=== PATIENT | male | born 1955 | race Caucasian/White ===

== ENCOUNTER 2018-04-12 07:52 | Day surgery (SDC) | payer MEDICARE, OTHER, SELFPAY ==
[2018-04-12 08:26] VITALS: BP 163/100; PULSE 71; RESP 16; TEMP 35.8; O2SAT 97; BMI 30.9
[2018-04-12] MEDS: LACTATED RINGERS 1,000 ML 200 ML IV (09:04)
--- NOTE | 2018-04-12 09:17 | PM.PREOP ---
Pre-operative Note Interval Note Pre-op Check: Yes History & Physical Reviewed by Physician and Yes Exam Performed Changes: Yes
--- NOTE | 2018-04-12 09:43 | SUR.OPER ---
HEAD OF BED UP 30 DEGREES
--- NOTE | 2018-04-12 09:58 | PM.OP.ENDO ---
Operative Date/Time/Diagnoses Date of procedure: 04/12/18 Time of procedure: 09:59 Pre-op diagnosis: History of esophageal varices Post-op diagnosis: same Procedure & Clinicians Study performed: EGD Same procedure as scheduled: Yes Indications: surveillance of varices Surgeon: Sharif Miranda Procedure Notes SCOAP/Timeout: performed Procedure in detail: the patient was placed supine head up on the stretcher and underwent monitored anesthesia care due to her is serious medical issues. Topical anesthetic was applied was oropharynx. The scope was inserted and advanced through the mouth into the esophagus. Cord structures were noted to be normal. The esophagus was unremarkable touched until I reached 20 cm. There was a hollowed out area that may be the beginning of a Zenker's diverticulum. It was almost as though there was a patch of normal mucosa missing. The edges were prominent. This did not appear to be neoplastic. The scope was advanced through the rest of the esophagus. GE junction noted at 40 cm From the incisors. The stomach insufflated well. No lesions were seen in the body and antrum. The incisura was normal in appearance. The pyloric channel was patent. The duodenum was unremarkable to the Third part. The scope was brought back into the stomach and retroflexed. The proximal stomach was normal in appearance. There was no significant hiatal hernia seen. There was no evidence of gastric varices. The scope was straightened and brought back up into the GE junction area. The junction itself was fairly normal. There appeared to be 2 columns of varices both of which were fairly minor in diameter. The area was difficult to examine because the patient had a great deal of motion. There were no ulcerations and no inflammation. The scope was removed and the patient tolerated the procedure well. Scope withdrawal time: Not applicable Sedation minutes: 0 Findings: other findings ( esophageal varices) Specimen(s): none sent Complications: none Recommendations: Continue medication(s) and Other recommendation ( repeat exam in 6 months to a year.) Follow up: as needed Disposition: PACU
[2018-04-12 10:00] VITALS: BP 109/71; PULSE 69; RESP 12; TEMP 36.4; O2SAT 94
[2018-04-12 10:05] VITALS: BP 110/67; PULSE 63; RESP 12; O2SAT 95
[2018-04-12 10:10] VITALS: BP 114/70; PULSE 61; RESP 15; O2SAT 98
[2018-04-12 10:15] VITALS: BP 111/72; PULSE 61; RESP 15; O2SAT 97
[2018-04-12 10:30] VITALS: BP 134/85; PULSE 66; RESP 18; TEMP 36.4; O2SAT 96
[2018-04-12 11:41] LABS: Alanine Aminotransferase 45 IU/L (21-72)
[2018-04-12 12:18] LABS: Hepatitis B Surface Antigen NEGATIVE s/c (NEGATIVE)
[2018-04-12 12:33] LABS: Hemoglobin A1C% w Est Avg Glu 6.7 % (4.0-6.0)
[2018-04-12 12:36] LABS: HIV 1 and 2 Antibody NEGATIVE (NEGATIVE); Hep C Virus Ab w/Reflex Quant REACTIVE s/c (NEGATIVE)
--- NOTE | 2018-04-12 13:01 | SUR.PHASEII ---
1100: Lab at bedside, assisted with drawing pt labs ordered by Dr. Miranda. Labs drawn from PIV on Right Foot then PIV DC'd. Pt tolerated lab draw well.
[2018-04-13 13:56] LABS: Hepatitis B Surf Ab Qualitativ Nonreactive (Nonreactive)
== END 2018-04-12 11:20 | disposition home or self-care (01) ==
PROVIDERS: PCP Internal Medicine; Visit Provider Specialist
PROC: 0DJ08ZZ Inspection of Upper Intestinal Tract, Via Natural or Artificial Opening Endoscopic (ICD-10-PCS; CPT 43235; principal; 2018-04-12 09:30)
DX: I85.00 Esophageal varices without bleeding (principal); K74.60 Unspecified cirrhosis of liver; K21.9 Gastro-esophageal reflux disease without esophagitis; I10 Essential (primary) hypertension; E11.9 Type 2 diabetes mellitus without complications
CPT/HCPCS: 43235; 83036; 87522; J2250; J2704

== ENCOUNTER 2019-06-11 06:25 | Day surgery (SDC) | payer MEDICARE, OTHER, SELFPAY ==
--- NOTE | 2019-06-11 | PATH_ITS ---
[facility] Accession Number: [id number] . 01 Material submitted: . PART A: esophagus, E-G Junction - GE JUNCTION BIOPSY PART B: gastrointestinal site - GASTRIC ULCER BIOPSY . 01 Clinical history: . EGD . 02 Diagnosis: A. Gastroesophageal Junction, Biopsy: Squamocolumnar junctional mucosa with no diagnostic abnormality. Negative for intestinal metaplasia. Negative for dysplasia and malignancy. . B. Stomach, Ulcer, Biopsy: Antral mucosa with mild chronic gastritis. Negative for Helicobacter by immunohistochemistry. Negative for intestinal metaplasia. Negative for dysplasia and malignancy. MRV 06/13/2019 1225 Local . 02 Electronically signed: . Marisa Serrano MD, Pathologist NPI- [id number] . 01 Gross description: . Part A: GE JUNCTION BIOPSY: Received in formalin are 2 fragment(s) of diaz, soft tissue measuring 0.2 x 0.2 x 0.2 cm to 0.4 x 0.2 x 0.2 cm submitted entirely in 1 cassette(s) Part B: GASTRIC ULCER BIOPSY: Received in formalin are 2 fragment(s) of diaz, soft tissue measuring 0.1 x 0.1 x 0.1 cm to 0.2 x 0.1 x 0.1 cm submitted entirely in 1 cassette(s) /[facility] [place] 06/11/2019 1946 Local . 02 Microscopic: . B. An immunohistochemical stain was performed to evaluate for Helicobacter organisms and is negative. The control stain showed appropriate reactivity. . * This test was developed and its performance characteristics determined by [employer]. It has not been cleared or approved by the U.S. Food and Drug Administration. The FDA has determined that such clearance or approval is not necessary. This test is used for clinical purposes. It should not be regarded as investigational or for research. . 02 Pathologist provided ICD-10: I85.00 . 02 CPT . 599149, 980832, S53944 Performed at: 01 [facility] [address] [id number] MD Tae Harrison MD Phone: [phone] Performed at: [id number] [place], [place] [id number] MD Marisa Serrano MD Phone: [phone]
[2019-06-11 07:22] VITALS: BP 173/96; PULSE 70; RESP 16; TEMP 36.6; O2SAT 97; BMI 33.2
[2019-06-11] MEDS: SODIUM CHLORIDE 0.9% 1,000 ML 200 ML IV (07:35)
--- NOTE | 2019-06-11 08:07 | PM.HP.1 ---
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 He is here for surveillance of his varices Patient History Medical History Abdominal pain (Chronic) Aortic stenosis (Inactive) Cirrhosis (Chronic) Diabetes (Chronic) Esophageal varices (Chronic) GERD (gastroesophageal reflux disease) (Chronic) HTN (hypertension) (Chronic) Neuropathy (Chronic) Retinopathy (Chronic) Surgical History H/O arthroscopy of right knee (Inactive) History of appendectomy (Resolved) History of right inguinal hernia repair (Resolved) History of tympanoplasty (Resolved) S/P FESS (functional endoscopic sinus surgery) (Resolved) S/P TAVR (transcatheter aortic valve replacement) (Inactive) Family & Social History Family History Mother Hypertension Heart disease Sister Hypertension Social History: household members spouse Meds Home Medications and Allergies Home Medications Medication Instructions Recorded Confirmed Type [INSULIN PUMP] #0 06/09/16 History Lantus Solostar U-100 Insulin 40 unit SUBCUT DAILY PRN #0 08/24/17 06/11/19 History magnesium oxide 420 mg PO DAILY #0 08/24/17 06/11/19 History propranolol 60 mg PO BID #0 08/24/17 06/11/19 History amlodipine 10 mg tablet 10 mg PO DAILY 04/04/18 06/11/19 History aspirin 81 mg tablet,delayed 81 mg PO DAILY 04/04/18 06/11/19 History release losartan 50 mg tablet 50 mg PO DAILY 04/04/18 06/11/19 History ranitidine HCl 150 mg tablet 150 mg PO BID 04/04/18 06/11/19 History Allergies Allergy/AdvReac Type Severity Reaction Status Date / Time PPD Allergy Intermediate erythema Uncoded 04/12/18 08:23 tape AdvReac Intermediate Blisters Uncoded 06/11/19 07:11 Review of Systems Review of Systems Narrative: No chest pain or heart problems. He is diabetic sugar this morning is normal. He is on insulin pump. Takes medication to regulate his intestines. Exam Vital Signs (past 8 hours): - 06/11/19 07:22 Temperature 97.8 F Pulse Rate 70 Respiratory Rate 16 Blood Pressure 173/96 H Pulse Oximetry 97 Oxygen Delivery Method Room Air Narrative Exam Narrative: Pleasant cooperative patient no apparent distress. Lungs are clear to auscultation. No rales or rhonchi. Heart regular rate and rhythm no murmur gallop. Abdomen is soft nontender without mass. No obvious hernias. Patient is alert and oriented x3. Assessment & Plan Assessment & Plan narrative: For an EGD. He is quite familiar with the procedure having undergone it multiple times. I discussed that with him and will proceed.
--- NOTE | 2019-06-11 08:14 | PM.PREOP ---
Pre-operative Note Interval Note History & Physical reviewed/Exam performed by Physician: Yes Changes to H&P: No ASA Class (for procedural sedation): III
[2019-06-11] MEDS: fentaNYL 250 MCG/5 ML INJ IV (08:30)
[2019-06-11] MEDS: MIDAZOLAM 5 MG/5 ML VIAL IV (08:31)
[2019-06-11] MEDS: LIDOCAINE 4% SOLN 50 ML 20 ML TOP (08:31)
--- NOTE | 2019-06-11 08:39 | PM.OP.ENDO ---
Operative Date/Time/Diagnoses Date of procedure: 06/11/19 Time of procedure: 08:39 Pre-op diagnosis: History of liver cirrhosis and esophageal varices Post-op diagnosis: same (Gastric ulcers superficial. Hiatal hernia.) Procedure & Clinicians Study performed: EGD with cold biopsy Same procedure as scheduled: Yes Indications: Surveillance of varices Surgeon: Sharif Miranda Procedure Notes SCOAP/Timeout: Performed Procedure in detail: The patient had topical anesthetic applied to oropharynx. She was placed in left lateral decubitus position and underwent IV sedation directed by the surgeon consisting of fentanyl and Versed. A bite block was inserted and the scope was advanced through it into the esophagus. The esophagus was notable for proximal small varices mainly in the proximal 3rd of the esophagus. The middle and distal 3rd appeared to be spared significant variceal disease. There was inflammation at the GE junction. There was a sharp demarcation between esophageal and gastric mucosa.. The stomach insufflated well. There were no lesions seen in the body, or at the incisura. In the antrum there was 1 superficial small ulceration. The pyloric channel was narrowed but patent. The duodenum was unremarkable to the 3rd part. The scope was brought back into the stomach and retroflexed. The proximal stomach was remarkable for a hiatal hernia. The scope was straightened and biopsies taken of the ulcers seen. The scope was then Brought out through the esophagus again. I did some superficial biopsies at the GE junction. The scope was removed and the patient tolerated the procedure well. Scope withdrawal time: Not applicable Sedation minutes: 18 Findings: gastric ulcer, hiatal hernia and other findings (Esophageal varices small) Specimen(s): other (Biopsies of the ulcer and the GE junction) Complications: none Post-procedure Recommendations: Start medication(s) (Consider proton pump inhibitor) and Other recommendation (EGD 18 months) Disposition: PACU
[2019-06-11 08:40] VITALS: BP 155/106; PULSE 70; RESP 16; TEMP 36.6; O2SAT 94
[2019-06-11 08:45] VITALS: BP 163/98; PULSE 74; RESP 16; O2SAT 94
[2019-06-11 08:49] VITALS: BP 164/104; PULSE 69; RESP 12; TEMP 36.2; O2SAT 95
[2019-06-11 08:53] VITALS: BP 161/99; PULSE 67; RESP 12; O2SAT 95
--- NOTE | 2019-06-11 09:25 | SUR.PHASEII ---
pt discharged home. Denies any complaints. pt steady on his feet with pt.
== END 2019-06-11 09:15 | disposition home or self-care (01) ==
PROVIDERS: PCP Internal Medicine; Visit Provider Specialist
PROC: 0DJ08ZZ Inspection of Upper Intestinal Tract, Via Natural or Artificial Opening Endoscopic (ICD-10-PCS; CPT 43235; principal; 2019-06-11 07:45)
DX: I85.00 Esophageal varices without bleeding (principal); K25.9 Gastric ulcer, unspecified as acute or chronic, without hemorrhage or perforation; K44.9 Diaphragmatic hernia without obstruction or gangrene; K74.60 Unspecified cirrhosis of liver; E11.9 Type 2 diabetes mellitus without complications; I10 Essential (primary) hypertension; Z79.4 Long term (current) use of insulin
CPT/HCPCS: 43239; 99152; J2250; J3010

== ENCOUNTER 2019-09-12 06:42 | Day surgery (SDC) | payer MEDICARE, OTHER, SELFPAY ==
[2019-09-12] VITALS (7 sets, daily range): BP systolic 134–183; BP diastolic 82–105; PULSE 69–80; RESP 8–19; TEMP 36.4–36.7; O2SAT 90–97; BMI 33.1
[2019-09-12] MEDS: SODIUM CHLORIDE 0.9% 1,000 ML 84 ML IV (07:45)
[2019-09-12] MEDS: MIDAZOLAM 5 MG/5 ML VIAL IV (08:00)
--- NOTE | 2019-09-12 08:09 | PM.HP.1 ---
History of Present Illness History of Present Illness Date Patient Seen: 09/12/19 Time Patient Seen: 08:00 Chief complaint: [id number] EGD Narrative: The patient is a gentleman who had superficial gastric ulcers on his last EGD. He is brought to make sure they have healed. He has been treated with though it does proton pump inhibitors. He has a history of cirrhosis and varices Patient History Medical History Abdominal pain (Chronic) Aortic stenosis (Inactive) Cirrhosis (Chronic) Diabetes (Chronic) Esophageal varices (Chronic) GERD (gastroesophageal reflux disease) (Chronic) HTN (hypertension) (Chronic) Neuropathy (Chronic) Retinopathy (Chronic) Surgical History H/O arthroscopy of right knee (Inactive) History of appendectomy (Resolved) History of right inguinal hernia repair (Resolved) History of tympanoplasty (Resolved) S/P FESS (functional endoscopic sinus surgery) (Resolved) S/P TAVR (transcatheter aortic valve replacement) (Inactive) Family & Social History Family History Mother Hypertension Heart disease Sister Hypertension Social History: household members spouse Tobacco & Substance use: Tobacco type cigarettes Smoking Status Former smoker alcohol intake former Meds Home Medications and Allergies Home Medications Medication Instructions Recorded Confirmed Type [INSULIN PUMP] 75 units SUBCUT (VIA WEARABLE 06/09/16 09/12/19 History INJECTR) DAILY #0 Lantus Solostar U-100 Insulin 40 unit SUBCUT DAILY PRN #0 08/24/17 09/12/19 History magnesium oxide 420 mg PO DAILY #0 08/24/17 09/12/19 History propranolol 60 mg PO BID #0 08/24/17 09/12/19 History amlodipine 10 mg tablet 10 mg PO DAILY 04/04/18 09/12/19 History aspirin 81 mg tablet,delayed 81 mg PO DAILY 04/04/18 09/12/19 History release losartan 50 mg tablet 50 mg PO DAILY 04/04/18 09/12/19 History omeprazole 20 mg PO BID #60 cap 06/11/19 09/12/19 Rx wctmkrkchnas-njqh-uurst acid 1 tab PO DAILY 09/12/19 09/12/19 History [Multi-Day with Iron] rifaximin 550 mg PO BID 09/12/19 09/12/19 History Allergies Allergy/AdvReac Type Severity Reaction Status Date / Time PPD Allergy Intermediate erythema Uncoded 09/12/19 07:13 tape AdvReac Intermediate Blisters Uncoded 09/12/19 07:13 Review of Systems Review of Systems Narrative: No cough cold heart problems chest pain black or bloody bowel movement seizures Exam Vital Signs (past 8 hours): - 09/12/19 07:21 Temperature 97.8 F Pulse Rate 79 Respiratory Rate 15 Blood Pressure 183/105 H Pulse Oximetry 97 Oxygen Delivery Method Room Air Narrative Exam Narrative: Operative no apparent distress lungs are clear no rales or rhonchi heart regular rate and rhythm no murmur gallop abdomen is soft nontender Assessment & Plan Assessment & Plan narrative: Will proceed to EGD. I discussed it with him including risks of bleeding perforation he wishes to proceed
--- NOTE | 2019-09-12 08:11 | PM.PREOP ---
Pre-operative Note Interval Note History & Physical reviewed/Exam performed by Physician: Yes Changes to H&P: No ASA Class (for procedural sedation): III
[2019-09-12] MEDS: LIDOCAINE 4% SOLN 50 ML 20 ML TOP (08:30)
--- NOTE | 2019-09-12 08:30 | PM.OP.ENDO ---
Operative Date/Time/Diagnoses Date of procedure: 09/12/19 Time of procedure: 08:30 Pre-op diagnosis: History of gastric ulcers. History of esophageal varices Post-op diagnosis: same Procedure & Clinicians Study performed: EGD Same procedure as scheduled: Yes Indications: Determine if ulcers have healed Surgeon: Sharif Miranda Procedure Notes SCOAP/Timeout: Perform Procedure in detail: The patient had topical anesthetic applied to oropharynx. She was placed in left lateral decubitus position and underwent IV sedation directed by the surgeon consisting of fentanyl and Versed. A bite block was inserted and the scope was advanced through it into the esophagus. The esophagus was unremarkable except for some very small scattered varices. GE junction was noted at 36 cm from the incisors. The stomach insufflated well. There were no lesions seen in the body, antrum or at the incisura. The pyloric channel was patent. The duodenum was unremarkable to the 3rd part. The scope was brought back into the stomach and retroflexed. The proximal stomach was normal in appearance except for small hiatal hernia. The scope was straightened and brought out through the esophagus again. No other lesions were seen. The scope was removed and the patient tolerated the procedure well. Scope withdrawal time: Not applicable Sedation minutes: 13 Findings: hiatal hernia and other findings (Small esophageal varices) Specimen(s): none sent Complications: none Post-procedure Plan for aftercare: Surveillance EGD for varices Follow up: as needed Disposition: PACU
[2019-09-12] MEDS: fentaNYL 250 MCG/5 ML INJ IV (08:31)
== END 2019-09-12 09:35 | disposition home or self-care (01) ==
PROVIDERS: PCP Internal Medicine; Visit Provider Specialist
PROC: 0DJ08ZZ Inspection of Upper Intestinal Tract, Via Natural or Artificial Opening Endoscopic (ICD-10-PCS; CPT 43235; principal; 2019-09-12 07:45)
DX: Z87.11 Personal history of peptic ulcer disease (principal); E11.9 Type 2 diabetes mellitus without complications; I10 Essential (primary) hypertension; I85.00 Esophageal varices without bleeding; K44.9 Diaphragmatic hernia without obstruction or gangrene
CPT/HCPCS: 43235; 99152; J2250; J3010

== ENCOUNTER → 2020-01-09 14:46 | Outpatient (CLI) | payer MEDICARE, OTHER, SELFPAY ==
[2020-01-10 12:08] LABS: SARS CoV19 IgG Negative (Negative)
== END ==
PROVIDERS: PCP Internal Medicine; Referring Provider Internal Medicine; Visit Provider Internal Medicine
DX: Z03.818 Encounter for observation for suspected exposure to other biological agents ruled out (principal)
CPT/HCPCS: 36415; 86769

== ENCOUNTER → 2020-05-23 10:04 | Outpatient (CLI) | payer MEDICARE, OTHER, SELFPAY ==
--- NOTE | 2020-05-23 | DI.MRI.S_ITS ---
PROCEDURE: MR KNEE LT WO CON INDICATIONS: Other tear of medial meniscus, current injury, left knee, in TECHNIQUE: Noncontrast sagittal PD fast spin echo and T2 fast spin echo with fat saturation, sagittal 3-D FLASH with fat saturation; coronal T1 spin echo and PD fast spin echo with fat saturation, and axial PD fast spin echo with fat saturation through the knee. COMPARISON: [facility], CR, XR KNEE ARTHRITIC SERIES LT, 05/14/2020, 10:48. FINDINGS: Image quality: Excellent. Menisci: Ill-defined medial meniscal tear with abnormal signal extending to the undersurface and free margin. There is slight partial extrusion and possible displaced meniscal fragment within the medial gutter image 23/10. Tiny parameniscal cyst adjacent to the posterior horn measuring 1-2 mm, image 7/7. Lateral meniscus intact. Cruciate ligaments: Anterior cruciate ligament appears intact. Posterior cruciate ligament appears intact. Medial structures: There is medial bowing of the medial collateral ligament, with mild internal signal changes and no complete rupture. There is adjacent soft tissue edema. The appearance could reflect reactive changes to medial compartment pathology, versus low-grade sprain of the MCL. Pes anserinus tendons appear grossly unremarkable. Semimembranosus tendon appears intact. Lateral structures: The lateral collateral ligament demonstrates thickening and intrasubstance signal change in keeping with low grade sprain, statistically chronic, although technically age indeterminate. Biceps femoris tendon appears intact. Popliteus tendon grossly unremarkable. Iliotibial band appears intact. Anterior structures: Quadriceps tendon intact. Medial and lateral patellofemoral ligaments intact. Patellar tendon appears thickened in keeping with chronic tendinopathy. Adjacent fluid and edema.. Hoffa's fat pad unremarkable. Bones and cartilage: No focal marrow contusion or discrete low signal fracture line. Within the medial compartment, mild diffuse surface fraying of the femoral tibial cartilage. Within the lateral compartment, minimal surface fraying and partial thickness femoral articular cartilage loss. Within the patellofemoral compartment, diffuse partial-thickness loss and full-thickness fissuring of the patellar and femoral trochlear cartilage Joint space: Small joint effusion. No Pimentel's cyst. No specific evidence of intra-articular loose body. IMPRESSION: Ill-defined medial meniscal tear involving the body and posterior horn. Small displaced meniscal fragment appears to be located within the medial gutter although recommend correlation with arthroscopic findings as necessary. Small parameniscal cyst adjacent the posterior horn as above Chronic patellar tendinopathy and thickening. Adjacent fluid/edema. Tricompartmental joint degeneration although most pronounced in the patellofemoral compartment. Small joint effusion Dictated by: Lawson Concepcion M.D. on 05/25/2020 at 9:17 Approved by: Lawson Concepcion M.D. on 05/25/2020 at 9:32
== END ==
PROVIDERS: PCP Internal Medicine; Referring Provider Orthopaedic Surgery; Visit Provider Orthopaedic Surgery
DX: S83.242A Other tear of medial meniscus, current injury, left knee, initial encounter (principal); M17.12 Unilateral primary osteoarthritis, left knee
CPT/HCPCS: 73721

== ENCOUNTER → 2020-06-29 13:58 | Outpatient (CLI) | payer MEDICARE, OTHER, SELFPAY ==
[2020-06-29 16:07] LABS: COVID19 -Nasal RAPID Negative (Negative)
== END ==
PROVIDERS: PCP Internal Medicine; Visit Provider Physician Assistant
DX: Z11.59 Encounter for screening for other viral diseases (principal)
CPT/HCPCS: 87635

== ENCOUNTER 2020-07-01 10:10 | Day surgery (SDC) | payer MEDICARE, OTHER, SELFPAY ==
[2020-06-26 14:00] VITALS: BMI 32.3
[2020-07-01] VITALS (7 sets, daily range): BP systolic 119–158; BP diastolic 72–87; PULSE 70–77; RESP 12–17; TEMP 36.1–36.9; O2SAT 91–97; BMI 31.9
[2020-07-01] MEDS: LACTATED RINGERS 1,000 ML 42 ML IV (10:39)
--- NOTE | 2020-07-01 10:40 | PM.PREOP ---
Pre-operative Note COVID-19 COVID-19 status: Negative Result date/Date tested (Pos, Neg/Pending): 06/29/20 Interval Note History & Physical reviewed/Exam performed by Physician: Yes Changes to H&P: No
[2020-07-01] MEDS: CEFAZOLIN 2 GM/100 ML FROZ.PIGGY IV (11:29)
--- NOTE | 2020-07-01 11:44 | SUR.OPER ---
Supine on padded OR bed. Pillow under head, arms secured on padded armboards <90 degree abduction. Safety belt across torso. Non-operative leg secured with tape over blanket over lower leg. Operative leg prepped into field. Foam padded brace at thigh of operative leg.
[2020-07-01] MEDS: BUPIVACAINE 0.5% W/ EPI (PF) 30 ML VIAL INJ (11:50)
--- NOTE | 2020-07-01 12:27 | P.OP_ITS ---
Operative Date/Time/Diagnoses Date of procedure: 07/01/20 Time of procedure: 12:27 Pre-op diagnosis: Left knee medial meniscus tear Post-op diagnosis: same Procedure & Clinicians Procedure: Left knee arthroscopy with partial medial meniscectomy (CPT code 2981) Same procedure as scheduled: Yes Indications: 64-year-old male with persistent left medial knee pain and catching. Attempted conservative treatment but due to persistence of symptoms we have discussed the options and elected proceed with arthroscopic evaluation and treatment. Surgeon: Heriberto Castro Click Yes if Unassisted: Yes Anesthesia Type: General Operative Notes Findings: Mild synovial hypertrophy. Grade 2 chondromalacia in the patellofemoral joint primarily on the patellar surface minor changes on the trochlear surface. ACL and PCL are intact. Lateral compartment demonstrates minimal softening and fibrillation of the femoral and tibial articular surface with an intact lateral meniscus to visualization and probing. Medial compartment demonstrates mild diffuse grade 2 chondromalacia of the femoral tibial surfaces. There was a complex tear of the posterior horn of the medial meniscus. The midbody and anterior horn were intact. Closure Type: primary Specimen(s): none sent Estimated Blood Loss (mL): 0 Procedure in detail: Patient brought to the operating room and placed in supine position where general anesthetic was induced. After IV antibiotics and left lower extremities prepped and draped in usual sterile fashion. Medial and lateral parapatellar portals created after infiltrating with Marcaine with epinephrine. Arthroscope introduced through the lateral parapatellar portal arthroscopic examination performed with above-noted findings. Partial medial meniscectomy performed using combination of basket forceps and shaver back to smooth and stable rim. Minor anterior synovectomy was then performed a shaver. The knee was copiously irrigated and drained and wounds closed with Steri- Strips. Knee was then reinforced tray with Marcaine sterile dressings applied, the anesthetic terminated, the patient taken to postanesthesia recovery in satisfactory condition. Complications: none Post-operative Condition: stable Disposition: PACU Plan for aftercare: Discharge home when stable, ambulation weight-bearing as tolerated. Recommend ice and anti-inflammatories as needed and follow-up in 2 weeks
[2020-07-01] MEDS: OXYCODONE IR 5 MG TABLET PO (12:31)
== END 2020-07-01 12:48 | disposition home or self-care (01) ==
PROVIDERS: PCP Internal Medicine; Referring Provider Orthopaedic Surgery; Visit Provider Orthopaedic Surgery
PROC: (CPT 29870; principal; 2020-07-01 12:45)
DX: S83.242A Other tear of medial meniscus, current injury, left knee, initial encounter (principal); M94.262 Chondromalacia, left knee; I10 Essential (primary) hypertension; G47.33 Obstructive sleep apnea (adult) (pediatric); E11.40 Type 2 diabetes mellitus with diabetic neuropathy, unspecified; Z79.4 Long term (current) use of insulin; Z86.19 Personal history of other infectious and parasitic diseases
CPT/HCPCS: 29881; J0690; J2250; J2405; J2704; J3010

== ENCOUNTER → 2020-09-22 19:28 | Outpatient (ROUT) | payer MEDICARE, OTHER, SELFPAY ==
[2020-09-22 20:07] LABS: Add Manual Diff / Slide Review NO; Basophils Absolute Auto 100 /uL (0-100); Basophils Percent Auto 0.4 % (0-2); Eosinophils Absolute Auto 200 /uL (0-450); Eosinophils Percent Auto 1.9 % (2-4); Hematocrit 44.5 % (41-53); Hemoglobin 14.6 g/dL (13.5-17.5); Lymphocytes Absolute Auto 2600 /uL (1100-4500); Lymphocytes Percent Auto 21.2 % (25-40); Mean Corpuscular HGB Conc 32.9 % (30-36); Mean Corpuscular Hemoglobin 29.2 PG (26-34); Mean Corpuscular Volume 88.8 fL (80-100); Monocytes Absolute Auto 800 /uL (0-900); Monocytes Percent Auto 6.8 % (3-14); Neutrophils Absolute Auto 8400 /uL (1500-7000); Neutrophils Percent Auto 69.7 % (50-75); Platelet Count 149 X10^3/uL (150-400); Red Blood Cell Count 5.01 X10^6/uL (4.5-5.9); Red Cell Distribution Width 13.2 % (11.6-14.8); White Blood Cell Count 12.1 X10^3/uL (4.5-11.0)
[2020-09-22 20:13] LABS: Blood Urea Nitrogen 20 mg/dL (9-20); Calcium 9.8 mg/dL (8.4-10.2); Carbon Dioxide 27 mmol/L (22-32); Chloride 102 mmol/L (98-107); Estimated Glomerular Filt Rate > 60.0 mL/min (>60); Glucose 104 mg/dL (80-110); HEMOLYSIS 21 (0-50); Potassium 4.4 mmol/L (3.4-5.1); Sodium 139 mmol/L (137-145)
[2020-09-22 20:44] LABS: Prostate Specific Antigen 1.02 ng/mL (0.10-4.00)
== END ==
PROVIDERS: PCP Internal Medicine; Visit Provider Internal Medicine
DX: N41.0 Acute prostatitis (principal)
CPT/HCPCS: 80048; 84153; 85025; 87077; 87086; 87186

== ENCOUNTER → 2020-11-05 09:29 | Outpatient (CLI) | payer MEDICARE, OTHER, SELFPAY ==
[2020-11-05 10:20] LABS: COVID19 -Nasal RAPID Negative (Negative)
== END ==
PROVIDERS: PCP Internal Medicine; Visit Provider Specialist
DX: Z20.822 Contact with and (suspected) exposure to COVID-19 (principal)
CPT/HCPCS: 87635; C9803

== ENCOUNTER 2020-11-06 06:39 | Day surgery (SDC) | payer MEDICARE, OTHER, SELFPAY ==
--- NOTE | 2020-11-06 | PATH_ITS ---
[facility] Accession Number: [id number] . 01 Material submitted: . esophagus, E-G Junction - GE JUNCTION BIOPSY . 02 Diagnosis: Gastroesophageal Junction, Biopsy: Squamocolumnar junctional mucosa with no diagnostic abnormality. Negative for intestinal metaplasia. Negative for dysplasia and malignancy. . MRV 11/11/2020 1127 Local . 02 Electronically signed: . Marisa Serrano MD, Pathologist NPI- [id number] . 01 Gross description: . GE JUNCTION BIOPSY: Received in formalin are 2 fragment(s) of diaz, soft tissue measuring 0.1 x 0.1 x 0.1 cm to 0.3 x 0.2 x 0.2 cm submitted entirely in 1 cassette(s) /[facility] 11/10/2020 0126 Local . 02 Pathologist provided ICD-10: Z87.19 . 02 CPT . 157125 Performed at: 01 [facility] [address] [facility], [place], [place] [id number] MD Tae Harrison MD Phone: [phone] Performed at: 02 [facility] [address] [place], [place] [id number] MD Marisa Serrano MD Phone: [phone]
--- NOTE | 2020-11-06 07:16 | PM.HP.1 ---
History of Present Illness History of Present Illness Date Patient Seen: 11/06/20 Time Patient Seen: 07:17 Chief complaint: EGD Narrative: The patient is a gentleman with known cirrhosis here for monitoring varices. Patient History Medical History Abdominal pain Aortic stenosis Chronic cough Cirrhosis Diabetes Diabetic retinopathy Esophageal varices Factor XI deficiency GERD (gastroesophageal reflux disease) Hepatic encephalopathy (~2012) Hepatitis C HLD (hyperlipidemia) HTN (hypertension) Hx of corrected cleft lip and palate Lung nodule Neuropathy VICKIE on CPAP (~2018) Retinopathy Thrombocytopenia Surgical History H/O arthroscopy of right knee History of appendectomy History of right inguinal hernia repair History of tympanoplasty History of vasectomy Hx of arthroscopic knee surgery Hx of rhinoplasty S/P FESS (functional endoscopic sinus surgery) S/P TAVR (transcatheter aortic valve replacement) (07/20/15) Family & Social History Family History Mother Hypertension Heart disease Sister Hypertension Social History: household members spouse Tobacco & Substance use: Tobacco type cigarettes Smoking Status Former smoker alcohol intake former Substance Use Type does not use Meds Home Medications and Allergies Home Medications Medication Instructions Recorded Confirmed Type [INSULIN PUMP] 80 units SUBCUT (VIA WEARABLE 06/09/16 07/01/20 History INJECTR) DAILY #0 Lantus Solostar U-100 Insulin 40 unit SUBCUT DAILY PRN #0 08/24/17 06/29/20 History magnesium oxide 420 mg PO DAILY #0 08/24/17 06/29/20 History propranolol 60 mg PO BID #0 08/24/17 07/01/20 History amlodipine 10 mg tablet 10 mg PO DAILY 04/04/18 07/01/20 History aspirin 81 mg tablet,delayed 81 mg PO DAILY 04/04/18 06/29/20 History release losartan 50 mg tablet 50 mg PO DAILY 04/04/18 06/29/20 History Multi-Day with Iron 1 tab PO DAILY 09/12/19 06/29/20 History rifaximin 550 mg PO BID 09/12/19 06/29/20 History cetirizine 10 mg PO DAILY PRN 06/29/20 06/29/20 History pregabalin [Lyrica] 150 mg PO TID 06/29/20 06/29/20 History venlafaxine 150 mg PO DAILY 06/29/20 06/29/20 History atorvastatin 10 mg PO DAILY 07/01/20 07/01/20 History famotidine 20 mg PO BID 07/01/20 07/01/20 History Allergies Allergy/AdvReac Type Severity Reaction Status Date / Time PPD Allergy Intermediate erythema Uncoded 11/06/20 07:06 tape AdvReac Intermediate Blisters Uncoded 11/06/20 07:06 Review of Systems Review of Systems Narrative: No cough or cold. No GI bleeding. No change in his liver status. No chest pain. Has additional gallstones on ultrasound. Exam Narrative Exam Narrative: Pleasant cooperative patient no apparent distress. Lungs are clear to auscultation. No rales or rhonchi. Heart regular rate and rhythm no murmur gallop. Abdomen is soft nontender without mass. No obvious hernias. Patient is alert and oriented x3. Assessment & Plan Assessment & Plan narrative: Patient for monitoring his varices with an EGD. He is well acquainted with the procedure and we will proceed. Consent signed
[2020-11-06 07:18] VITALS: BP 159/94; PULSE 69; RESP 16; TEMP 36.2; O2SAT 97; BMI 32.5
--- NOTE | 2020-11-06 07:20 | PM.PREOP ---
Pre-operative Note COVID-19 COVID-19 status: Negative Result date/Date tested (Pos, Neg/Pending): 11/05/20 Interval Note History & Physical reviewed/Exam performed by Physician: Yes Changes to H&P: No ASA Class (for procedural sedation): III
[2020-11-06] MEDS: LACTATED RINGERS 1,000 ML 200 ML IV (07:34)
[2020-11-06] MEDS: LIDOCAINE 4% SOLN 50 ML 20 ML TOP (07:45)
[2020-11-06] MEDS: fentaNYL 250 MCG/5 ML INJ IV (07:54)
[2020-11-06] MEDS: MIDAZOLAM 5 MG/5 ML VIAL IV (07:55)
--- NOTE | 2020-11-06 08:05 | P.OP.ENDO_ITS ---
Operative Date/Time/Diagnoses Date of procedure: 11/06/20 Time of procedure: 08:05 Pre-op diagnosis: History of cirrhosis. Surveillance of varices. Post-op diagnosis: same (Mild inflammation of the GE junction. Small varices which are unchanged from prior exam.) Procedure & Clinicians Study performed: EGD with cold biopsy Same procedure as scheduled: Yes Indications: Surveillance of varices. Surgeon: Sharif Miranda Procedure Notes SCOAP/Timeout: Performed Procedure in detail: The patient had topical anesthetic applied to oropharynx. She was placed in left lateral decubitus position and underwent IV sedation dire cted by the surgeon consisting of fentanyl and Versed. A bite block was inserted and the scope was advanced through it into the esophagus. The esophagus was unremarkable. GE junction was noted to have some mild inflammation. There were for some very small varices noted in the region. There is very small hiatal hernia.. The stomach insufflated well. There were no lesions seen in the body, antrum or at the incisura. The pyloric channel was mildly narrowed but patent. The duodenum was unremarkable to the 4th part. The scope was brought back into the stomach and retroflexed. The proximal stomach normal except for the small hiatal hernia. No gastric varices were seen.. The scope was straightened and brought out through the esophagus again. Two biopsies were taken at the GE junction. No other lesions were seen. The scope was removed and the patient tolerated the procedure well. Scope withdrawal time: Not applicable Sedation minutes: 16 Findings: hiatal hernia (Small) and other findings (Mild esophagitis at the GE junction) Specimen(s): other (GE junction biopsies) Complications: none Impression: Exam of this year is almost identical to the 1 seen last year based on the report and pictures taken at that time Post-procedure Recommendations: EGD in 1 year Follow up: as needed Disposition: PACU
[2020-11-06 08:08] VITALS: BP 142/71; PULSE 63; RESP 10; TEMP 36.9; O2SAT 95
[2020-11-06 08:13] VITALS: BP 134/88; PULSE 67; RESP 14; O2SAT 93
[2020-11-06 08:18] VITALS: BP 117/60; PULSE 64; RESP 14; O2SAT 93
[2020-11-06 08:24] VITALS: BP 108/61; PULSE 68; RESP 11; O2SAT 94
[2020-11-06 08:26] VITALS: BP 136/82; PULSE 65; RESP 10; TEMP 36.1; O2SAT 95
== END 2020-11-06 08:36 | disposition home or self-care (01) ==
PROVIDERS: PCP Internal Medicine; Referring Provider Specialist; Visit Provider Specialist
PROC: 0DJ08ZZ Inspection of Upper Intestinal Tract, Via Natural or Artificial Opening Endoscopic (ICD-10-PCS; CPT 43235; principal; 2020-11-06 07:45)
DX: Z87.19 Personal history of other diseases of the digestive system (principal); K74.60 Unspecified cirrhosis of liver; G47.33 Obstructive sleep apnea (adult) (pediatric); D68.1 Hereditary factor XI deficiency; I10 Essential (primary) hypertension; E78.5 Hyperlipidemia, unspecified; E11.40 Type 2 diabetes mellitus with diabetic neuropathy, unspecified; Z79.4 Long term (current) use of insulin; K20.90 Esophagitis, unspecified without bleeding; K44.9 Diaphragmatic hernia without obstruction or gangrene
CPT/HCPCS: 43239; 99152; J2250; J3010

== ENCOUNTER → 2021-02-24 09:47 | Outpatient (CLI) | payer MEDICARE, OTHER, SELFPAY ==
[2021-02-24 10:40] LABS: COVID19 -Nasal RAPID Negative (Negative)
== END ==
PROVIDERS: PCP Internal Medicine; Referring Provider Internal Medicine; Visit Provider Internal Medicine
DX: R06.02 Shortness of breath (principal)
CPT/HCPCS: 87635

== ENCOUNTER → 2021-02-24 09:49 | Outpatient (CLI) | payer MEDICARE, OTHER, SELFPAY ==
--- NOTE | 2021-02-26 08:07 | P.PFT.S_ITS ---
Pulmonary Function Test Referral & Results Date Patient Seen: 02/24/21 Requesting provider: Kayode Lawrence Results: The spirometry demonstrates an FVC of 4.19 L which is 75% of predicted. The FEV1 was measured at 3.35 L which is 80% of predicted. The FEV1/FVC ratio was 80 which is 106% of predicted. Following the administration of bronchodilator there was no change. Lung volumes show an SVC of 4.37 L which is 80% of predicted. The diffusing capacity was measured at 27.89 which is 71% of predicted. No hemoglobin value was provided, so no correction for potential anemia could be made, if appropriate. The maximum voluntary ventilation was reduced Interpretation: This study demonstrates perhaps mild obstructive lung disease based on reduction FEV1, although FEV1/FVC ratio was preserved. There is no evidence of benefit following bronchodilator and shape a flow volume loop really does not support the presence of obstructive lung disease. There may be mild restrictive lung disease based on reduction in SVC as above There is also a mild reduction in diffusing capacity suggesting element of disease at the capillary alveolar level There is also significant reduction in maximum voluntary ventilation which in the absence of significant spirometric abnormality suggest significant neuromuscular disease Compared to PFTs performed in July 2017, current study is essentially un changed although diffusing capacity was improved on prior study and maximum voluntary ventilation was entirely normal on previous study.
== END ==
PROVIDERS: PCP Internal Medicine; Referring Provider Internal Medicine; Visit Provider Internal Medicine
DX: R06.02 Shortness of breath (principal); R06.00 Dyspnea, unspecified; J98.8 Other specified respiratory disorders; Z20.822 Contact with and (suspected) exposure to COVID-19; Z87.891 Personal history of nicotine dependence
CPT/HCPCS: 87635; 94060; 94726; 94729; C9803

== ENCOUNTER → 2021-12-06 13:12 | Outpatient (CLI) | payer MEDICARE, OTHER, SELFPAY ==
[2021-12-06 14:22] LABS: COVID19 -Nasal RAPID Negative (Negative)
== END ==
PROVIDERS: PCP Internal Medicine; Visit Provider Surgery
DX: Z01.812 Encounter for preprocedural laboratory examination (principal); Z20.822 Contact with and (suspected) exposure to COVID-19
CPT/HCPCS: 87635; C9803

== ENCOUNTER 2021-12-07 07:28 | Day surgery (SDC) | payer MEDICARE, OTHER, SELFPAY ==
[2021-12-07 07:57] VITALS: BP 156/94; PULSE 66; RESP 16; TEMP 36.2; O2SAT 97; BMI 32.5
[2021-12-07] MEDS: LACTATED RINGERS 1,000 ML 42 ML IV (08:03)
--- NOTE | 2021-12-07 08:27 | P.HP_ITS ---
History of Present Illness History of Present Illness Date Patient Seen: 12/07/21 Time Patient Seen: 08:27 Chief complaint: SDC Narrative: 65-year-old man with a history esophageal varices who is here for routine surveillance of the varices. He has had this procedure performed here for most recently 1 year ago. No hematemesis or abdominal pain. Patient History Medical History Abdominal pain Aortic stenosis Chronic cough Cirrhosis Diabetes Diabetic retinopathy Esophageal varices Factor XI deficiency GERD (gastroesophageal reflux disease) Hepatic encephalopathy (~2012) Hepatitis C HLD (hyperlipidemia) HTN (hypertension) Hx of corrected cleft lip and palate Lung nodule Neuropathy VICKIE on CPAP (~2018) Retinopathy Thrombocytopenia Surgical History H/O arthroscopy of right knee History of appendectomy History of right inguinal hernia repair History of tympanoplasty History of vasectomy Hx of arthroscopic knee surgery Hx of rhinoplasty S/P FESS (functional endoscopic sinus surgery) S/P TAVR (transcatheter aortic valve replacement) (07/20/15) Family & Social History Family History Mother Hypertension Heart disease Sister Hypertension Social History: household members spouse Tobacco & Substance use: Tobacco type cigarettes Smoking Status Former smoker alcohol intake former Substance Use Type does not use Meds Home Medications and Allergies Home Medications Medication Instructions Recorded Confirmed Type [INSULIN PUMP] 80 units SUBCUT (VIA WEARABLE 06/09/16 12/07/21 History INJECTR) DAILY #0 insulin glargine 100 unit/mL (3 40 unit SUBCUT DAILY PRN #0 08/24/17 12/07/21 History mL) subcutaneous pen (Lantus Solostar U-100 Insulin) magnesium oxide 420 mg tablet 420 mg PO DAILY #0 08/24/17 12/07/21 History propranolol 40 mg tablet 60 mg PO BID #0 08/24/17 12/07/21 History amlodipine 10 mg tablet 10 mg PO DAILY 04/04/18 12/07/21 History aspirin 81 mg tablet,delayed 81 mg PO DAILY 04/04/18 12/07/21 History release (Adult Aspirin Regimen) losartan 50 mg tablet 50 mg PO DAILY 04/04/18 12/07/21 History multivitamin-ferrous 1 tab PO DAILY 09/12/19 12/07/21 History fumarate-folic acid 18 mg-400 mcg tablet (Multi-Day with Iron) rifaximin 550 mg tablet 550 mg PO BID 09/12/19 12/07/21 History cetirizine 10 mg capsule 10 mg PO DAILY PRN 06/29/20 12/07/21 History pregabalin 150 mg capsule (Lyrica) 150 mg PO TID 06/29/20 12/07/21 History venlafaxine 150 mg 150 mg PO DAILY 06/29/20 12/07/21 History capsule,extended release 24 hr atorvastatin 10 mg tablet 10 mg PO DAILY 07/01/20 12/07/21 History famotidine 20 mg tablet 20 mg PO BID 07/01/20 12/07/21 History Allergies Allergy/AdvReac Type Severity Reaction Status Date / Time PPD Allergy Intermediate erythema Uncoded 11/06/20 07:06 tape AdvReac Intermediate Blisters Uncoded 11/06/20 07:06 Exam Vital Signs (past 8 hours): - 12/07/21 07:57 Temperature 97.1 F L Pulse Rate 66 Respiratory Rate 16 Blood Pressure 156/94 H Pulse Oximetry 97 Oxygen Delivery Method Room Air Narrative Exam Narrative: General adult male alert oriented no acute distress Chest nonlabored respirations Assessment & Plan Assessment & Plan narrative: 65-year-old man with esophageal varices here for routine surveillance. Technical details of the EGD procedure were discussed with the patient. Proc edural risks including bleeding, intestinal perforation, anesthetic complications were discussed. His questions have been answered he is in agreement with this plan. Time Spent With Patient Critical Care time: I spent a total of [] minutes of critical care time on this patient's care today; this time is exclusive of procedural time.
[2021-12-07] MEDS: fentaNYL 250 MCG/5 ML INJ 100 MCG IV (08:40)
[2021-12-07] MEDS: MIDAZOLAM 5 MG/5 ML VIAL 6 MG IV (08:40)
[2021-12-07] MEDS: LIDOCAINE 4% SOLN 50 ML 20 ML TOP (08:48)
--- NOTE | 2021-12-07 08:48 | PM.OP.EGD ---
Operative Date/Time/Diagnoses Date of procedure: 12/07/21 Time of procedure: 08:48 Pre-op diagnosis: History of esophageal varices Post-op diagnosis: same Procedure & Clinicians Study performed: Esophagoduodenoscopy Same procedure as scheduled: Yes Indications: History of esophageal varices here for surveillance Surgeon: Angel Rios Procedure Notes Procedure in detail: Patient placed in left lateral decubitus position. Time out was performed. Procedural sedation was administered with Versed and Fentanyl. A bite block was placed. the scope was inserted into the mouth and advanced through the esophagus and into the stomach. The pylorus was intubated and the duodenum was normal to the 2nd portion. The scope was retroflexed within the stomach and there was a small hiatal hernia. No ulcers, or gastritis. The scope was withdrawn into the esophagus the Z line was seen at 40 cm from the incisions. Very mild inflammation of the distal esophagus no eugene esophageal varices. Stomach was desufflated and scope removed. Patient tolerated procedure well. Specimen(s): none sent Complications: none Impression: No significant esophageal varices Post-procedure Plan for aftercare: Follow-up as needed Disposition: same day surgery
[2021-12-07 08:54] VITALS: BP 141/84; PULSE 64; RESP 10; TEMP 36.6; O2SAT 97
[2021-12-07 08:59] VITALS: BP 141/78; PULSE 61; RESP 9; O2SAT 95
[2021-12-07 09:04] VITALS: BP 144/79; PULSE 64; RESP 10; O2SAT 94
[2021-12-07 09:10] VITALS: BP 130/84; PULSE 58; RESP 12; O2SAT 96
== END 2021-12-07 09:22 | disposition home or self-care (01) ==
PROVIDERS: PCP Internal Medicine; Referring Provider Surgery; Visit Provider Surgery
PROC: 0DJ08ZZ Inspection of Upper Intestinal Tract, Via Natural or Artificial Opening Endoscopic (ICD-10-PCS; CPT 43235; principal; 2021-12-07 08:45)
DX: Z09 Encounter for follow-up examination after completed treatment for conditions other than malignant neoplasm (principal); Z87.19 Personal history of other diseases of the digestive system
CPT/HCPCS: 43235; J2250; J3010

== ENCOUNTER → 2021-12-20 15:18 | Outpatient (CLI) | payer MEDICARE, OTHER, SELFPAY ==
--- NOTE | 2021-12-20 15:21 | DI.RAD.S_ITS ---
PROCEDURE: XR HAND RT MIN 3V INDICATIONS: fall TECHNIQUE: 3 views of the hand(s) acquired. COMPARISON: None. FINDINGS: Bones: No fractures or dislocations. Cortical irregularity of the 4th metacarpal, which may reflect remote fracture deformity. Productive change along the dorsal carpus, which may reflect osteophytosis or remote traumatic injury. Carpal bones are normally aligned. No suspicious bony lesions. Soft tissues: No suspicious soft tissue calcifications. IMPRESSION: No acute osseous abnormality. Dictated by: Sergo Quezada M.D. on 12/20/2021 at 15:55 Approved by: Sergo Quezada M.D. on 12/20/2021 at 15:59
== END ==
PROVIDERS: PCP Internal Medicine; Referring Provider Nurse Practitioner Family; Visit Provider Nurse Practitioner Family
DX: M79.641 Pain in right hand (principal)
CPT/HCPCS: 73130

== ENCOUNTER 2022-12-26 08:21 | Emergency (ER) | payer OTHER, SELFPAY ==
[2022-12-26 08:22] VITALS: BP 178/89; PULSE 70; RESP 14; TEMP 36.6; O2SAT 98; BMI 32.5
--- NOTE | 2022-12-26 08:30 | ED_ITS ---
HPI - General Adult General Chief complaint: Eye Problems Stated complaint: bells palsey Time Seen by Provider: 12/26/22 08:25 Source: patient Mode of arrival: Ambulatory Limitations: no limitations History of Present Illness HPI narrative: Patient is a 67-year-old male who is here for evaluation of right-sided facial drooping. He states that his symptoms initially started approximately 4 days ago when he started noticing some taste differences to the right side of his tongue however yesterday he noticed some drooping of the right side of his face. He states he is quite a bit of irritation to his right eye. No rashes. No headache. No extremity symptoms. No balance issues. He is an insulin- dependent diabetic. Has been taking all his medications as directed. No fevers. No trauma Related Data Home Medications Medication Instructions Recorded Confirmed [INSULIN PUMP] 80 units subcut (via wearable 06/09/16 12/20/21 injectr) DAILY ##0 insulin glargine 100 unit/mL (3 40 unit SUBCUT DAILY PRN If 08/24/17 12/20/21 mL) subcutaneous pen (Lantus insulin pump is not working ##0 Solostar U-100 Insulin) magnesium oxide 420 mg tablet 420 mg PO DAILY ##0 08/24/17 12/20/21 propranolol 40 mg tablet 60 mg PO BID ##0 08/24/17 12/20/21 amlodipine 10 mg tablet 10 mg PO DAILY 04/04/18 12/20/21 aspirin 81 mg tablet,delayed 81 mg PO DAILY 04/04/18 12/20/21 release (Adult Aspirin Regimen) losartan 50 mg tablet 50 mg PO DAILY 04/04/18 12/20/21 multivitamin-ferrous 1 tab PO DAILY 09/12/19 12/20/21 fumarate-folic acid 18 mg-400 mcg tablet (Multi-Day with Iron) rifaximin 550 mg tablet 550 mg PO BID 09/12/19 12/20/21 cetirizine 10 mg capsule 10 mg PO DAILY PRN allergies 06/29/20 12/20/21 pregabalin 150 mg capsule (Lyrica) 150 mg PO TID 06/29/20 12/20/21 venlafaxine 150 mg 150 mg PO DAILY 06/29/20 12/20/21 capsule,extended release 24 hr atorvastatin 10 mg tablet 10 mg PO DAILY 07/01/20 12/20/21 famotidine 20 mg tablet 20 mg PO BID 07/01/20 12/20/21 Previous Rx's Medication Instructions Recorded acyclovir 400 mg tablet 400 mg PO 5XD 10 days #50 tabs 12/26/22 prednisone 20 mg tablet 60 mg PO DAILY 7 days #21 tabs 12/26/22 Allergies Allergy/AdvReac Type Severity Reaction Status Date / Time adhesive Allergy Mild Rash Verified 12/26/22 08:52 Review of Systems Review of Systems ROS Unobtainable: All systems reviewed & are unremarkable except as noted in HPI and below Patient History Medical History Abdominal pain Aortic stenosis Chronic cough Cirrhosis Diabetes Diabetic retinopathy Esophageal varices Factor XI deficiency GERD (gastroesophageal reflux disease) Hepatic encephalopathy (~2012) Hepatitis C HLD (hyperlipidemia) HTN (hypertension) Hx of corrected cleft lip and palate Lung nodule Neuropathy VICKIE on CPAP (~2018) Retinopathy Thrombocytopenia Surgical History H/O arthroscopy of right knee History of appendectomy History of right inguinal hernia repair History of tympanoplasty History of vasectomy Hx of arthroscopic knee surgery Hx of rhinoplasty S/P FESS (functional endoscopic sinus surgery) S/P TAVR (transcatheter aortic valve replacement) (07/20/15) Family History Mother Hypertension Heart disease Sister Hypertension Social History household members: spouse Smoking Status: Former smoker alcohol intake: former Smoking Status: Former smoker Substance Use Type: does not use Exam Const General: cooperative, comfortable and No ill appearing [facility] Head: normal to inspection and normocephalic Ears: hearing grossly normal bilaterally, TM's normal bilaterally and EAC's normal Nose: external nose normal Face and sinus: normal facial exam Mouth: moist mucous membranes Throat: posterior oropharynx normal Eyes Eyelids: eyelids normal Cornea: corneas normal (On right) and fluorescein used Pupils: PERRL Resp Effort & Inspection: normal respiratory effort Cardio Rate: regular rate Rhythm: regular rhythm Skin General: no rashes or lesions noted Neuro Cognition: normal cognition Gait: normal gait Other: Cranial nerves are intact except for patient does have right-sided facial droop to include his forehead. He can not completely close his right eye. His sensation on the right side of his face is equal to the left. He does report decreased sensation to the right side of his tongue compared to the left. His sensation in his upper and lower extremities are equal bilateral. 5/5 strength bilateral upper and lower extremities. 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 Given his presentation and his exam I have lower suspicion that this is CVA/TIA. Has no rash. He does have irritation to his right eye but no uptake with fluorescein staining. His right ear is unremarkable. He initially had symptoms approximately 4 days ago but things did seem to worsen yesterday. He is an insulin-dependent diabetic. We will start him on steroids. He was informed that he is going to need to check his blood sugar was at home and maybe need to adjust his insulin. Will also put him on antivirals. We discussed the importance of protecting his right eye. He was given return precautions and follow-up instructions. He expressed understanding and agreement. Discharge Plan Departure Patient Disposition: Home Clinical Impression: Serrano's palsy Instructions: Serrano Palsy Activity Restrictions/Additional Instructions: I do recommend that you continue to take all of your medications as directed. We are going to need to put you steroids which is going to affect your blood sugars. You may need to adjust your insulin because of this. It is also important that you protect your right eye using the tape to close your eye especially at night. Contact your primary doctor for follow-up. Return to the emergency department for new or worsening symptoms. Prescriptions: New prednisone 20 mg tablet 60 mg PO DAILY 7 Days Qty: 21 0RF acyclovir 400 mg tablet 400 mg PO 5XD 10 Days Qty: 50 0RF No Action [INSULIN PUMP] 80 units subcut (via wearable injectr) DAILY Qty: 0 Patient Comments: approx 75 units daily continous infusion magnesium oxide 420 MG tablet 420 mg PO DAILY Qty: 0 propranolol 40 MG tablet 60 mg PO BID Qty: 0 Lantus Solostar U-100 Insulin 100 UNIT/1 ML insulin pen 40 unit subcut DAILY PRN (Reason: If insulin pump is not working) Qty: 0 Patient Comments: If his pump goes out. losartan 50 mg tablet 50 mg PO DAILY aspirin [Adult Aspirin Regimen] 81 mg tablet,delayed release (DR/EC) 81 mg PO DAILY amlodipine 10 mg tablet 10 mg PO DAILY Multi-Day with Iron 18-400 mg-mcg Tablet 1 tab PO DAILY rifaximin 550 mg Tablet 550 mg PO BID venlafaxine 150 mg Capsule,Extended Release 24hr 150 mg PO DAILY pregabalin [Lyrica] 150 mg Capsule 150 mg PO TID cetirizine 10 mg Capsule 10 mg PO DAILY PRN (Reason: allergies) atorvastatin 10 mg Tablet 10 mg PO DAILY famotidine 20 mg Tablet 20 mg PO BID Referrals: Miscellaneous,Doctor, MD [Primary Care Provider] - Stand Alone Forms: Patient Portal/API
[2022-12-26] MEDS: PROPARACAINE 0.5% OPHTH SOL 1 DROPS EYE-RIGHT (08:35)
[2022-12-26] MEDS: FLUORESCEIN 1 MG STRIP EYE-BOTH (08:36)
--- NOTE | 2022-12-26 08:58 | PC.NURSE ---
[place] palsey started on . Paralysis to the R side of his face. Unable to close his eye, R eye is watery and red. R side of tongue is also numb, not effecting airway.
== END 2022-12-26 09:03 | disposition home or self-care (01) ==
PROVIDERS: Emergency Provider Emergency Medicine
DX: G51.0 Bell's palsy (principal); Z79.899 Other long term (current) drug therapy
CPT/HCPCS: 99282